=== PATIENT | male | born 1975 | race Caucasian/White ===

== ENCOUNTER 2017-04-27 11:41 | Emergency (ER) | payer BC ==
[2017-04-27 12:05] VITALS: BP 156/81
[2017-04-27] MEDS: Tetan/Diph/Pertus SYR(Tdap)* 0.5 ML SYR(BOOSTRIX) use SYR IM ONE (13:05)
--- NOTE | 2017-04-27 13:19 | UC ---
Skin Complaint HPI - HPI Summary HPI Summary: Patient presents to the with CC of cat bite to the left MCP joint on the dorsum of the hand last evening. He arrives today with worsening erythema over the joint, slight swelling and warm to the touch. Denies previous history of infected cat bites or MRSA. He has full ROM of the joint. Denies numbness, tingling. He is otherwise healthy. Has not taken any medication for relief. The cat it his own, UTD with immunizations. He is currently NOT UTD with tetanus. - History of Current Complaint Chief Complaint: UCUpperExtremity Time Seen by Provider: 04/27/17 12:42 Stated Complaint: CAT BITE Hx Obtained From: Patient Onset/Duration: Sudden Onset Skin Exposure Onset/Duration: Hours Ago Timing: Constant Onset Severity: Mild Current Severity: Moderate Pain Intensity: 4 Pain Scale Used: 0-10 Numeric Location: Hand (Left) Character: Swelling, Pain, Redness Aggravating Factor(s): Touch Alleviating Factor(s): Nothing Associated Signs & Symptoms: Positive: Joint Swelling Related History: Trauma - Allergy/Home Medications Allergies/Adverse Reactions: Allergies Allergy/AdvReac Type Severity Reaction Status Date / Time Shellfish Allergy Allergy Nausea And Verified 09/02/15 14:18 Vomiting Review of Systems Constitutional: Negative Skin: Other - erythema to the left MCP joint on the dorsum of the left hand Respiratory: Negative Cardiovascular: Negative Gastrointestinal: Negative Motor: Negative Neurovascular: Negative Musculoskeletal: Arthralgia - left middle MCP joint swelling Neurological: Negative Is Patient Immunocompromised?: No All Other Systems Reviewed And Are Negative: Yes PMH/Surg Hx/FS Hx/Imm Hx Previously Healthy: Yes - Surgical History Surgical History: Yes Surgery Procedure, Year, and Place: Inguinal hernia operation age 4 - Social History Occupation: Employed Full-time Lives: With Family Alcohol Use: Weekly Alcohol Amount: 3-4 drinks twice weekly Substance Use Type: None Smoking Status (MU): Never Smoked Tobacco Have You Smoked in the Last Year: No When Did the Patient Quit Smoking/Using Tobacco: 20 years ago - Immunization History Most Recent Influenza Vaccination: 2013 Most Recent Tetanus Shot: unsure if he is up to date Physical Exam Triage Information Reviewed: Yes Appearance: Well-Appearing, Well-Nourished Vital Signs: Initial Vital Signs Temp 97.5 F 04/27/17 12:01 Pulse 72 04/27/17 12:01 Resp 16 04/27/17 12:01 BP 156/81 04/27/17 12:01 Pulse Ox 100 04/27/17 12:01 Vital Signs Reviewed: Yes Eye Exam: Normal Eyes: Positive: Conjunctiva Clear Dental Exam: Normal Neck exam: Normal Neck: Positive: Supple, Nontender, No Lymphadenopathy Respiratory Exam: Normal Respiratory: Positive: Chest non-tender Cardiovascular Exam: Normal Musculoskeletal: Positive: Strength Intact, ROM Intact Neurological Exam: Normal Neurological: Positive: Alert Psychological Exam: Normal Psychological: Positive: Normal Response To Family Skin: Positive: Other - erythema, slight swelling over the dorsum of the 3rd MCP joint - left hand Course/Dx - Course Course Of Treatment: Patient presents to the with evaluation of cat bite to the left MCP joint. There are small puncture wounds noted to the MCP joint without depth. ROM OK. Denies numbness, tingling. Erythema and warmth to the joint. He is given Augmentin 875mg BID x 7 days and is encouraged to go to the ED if he notices any worsening spreading, pain or decreased ROM of the hand. He agrees with plan. - Diagnoses Provider Diagnoses: Cat bite Discharge - Discharge Plan Condition: Stable Disposition: HOME Prescriptions: Amoxicillin/Clavulanate TAB* [Augmentin TAB 875*] 875 mg PO BID #14 tab Patient Education Materials: Animal Bite (ED) Referrals: No Primary Care Phys,NOPCP [Primary Care Provider] - Additional Instructions: Ibuprofen 600mg three times daily Tetanus booster was given Augmentin twice daily x 7 days - first dose this afternoon after pickup - second dose this evening If symptoms become worse - go to the ED - worsening redness, streaking up the hand or arm, decreased range of motion or abnormal drainage.
== END 2017-04-27 13:08 | disposition home or self-care (01) ==
LOC: UCEAST 11:41
DX: S61.452A Open bite of left hand, initial encounter (principal); W55.01XA Bitten by cat, initial encounter; Z91.013 Allergy to seafood; Z23 Encounter for immunization
CPT/HCPCS: 90471; 90715; 99212; G0463

== ENCOUNTER → 2017-04-27 16:04 | Emergency (ER) | payer BC ==
[~2017-04-27 16:04] MED LIST: Lidocaine 1% INJ* 10 MG/ML 30 ML SDV INJ ONE; Lidocaine 1% INJ* 10 MG/ML 30 ML SDV ONE
[2017-04-27 17:27] LABS: Hematocrit 43 % (42-52); Hemoglobin 14.9 g/dl (14.0-18.0); Mean Corpuscular HGB Conc 35 g/dl (31-36); Mean Corpuscular Hemoglobin 29 pg (27-31); Mean Corpuscular Volume 84 fL (80-94); Mean Platelet Volume 8 um3 (7.4-10.4); Red Blood Count 5.08 10^6/ul (4.0-5.4); Red Cell Distribution Width 14 % (10.5-15); White Blood Count 8.3 10^3/ul (3.5-10.8)
[2017-04-27 17:42] LABS: Albumin 4.4 g/dL (3.2-5.2); BUN/Creatinine Ratio 12.4 (8-20); C Reactive Protein 2.57 mg/L (< 5.00); Calcium 9.5 mg/dL (8.6-10.3); EGFR African American 100.6 (>60); EGFR Non-African American 78.2 (>60); Globulin 2.5 g/dL (2-4); Potassium 3.9 mmol/L (3.5-5.0); Total Bilirubin 0.6 mg/dL (0.2-1.0); Total Protein 6.9 g/dL (6.4-8.9)
[2017-04-27 19:55] VITALS: BP 151/95
--- NOTE | 2017-04-27 21:41 | ED ---
Yaniv Velasco Nilda, scribed for Antonio Chiu MD on 04/27/17 at 1708 . Upper Extremity Pain - HPI Summary HPI Summary: This patient is a 42 year old M presenting from [facility] to [facility] with a chief complaint of constant moderate left hand pain s/p cat bite at 2030 last night. The patient rates the pain 5/10 in severity. Symptoms aggravated by movement and alleviated by rest. Patient reports swelling and erythema in the affected area. At 1315 today, patient received a dose of Augmentin at [facility]. He was told to visit the ED if swelling and pain worsened. - History of Current Complaint Chief Complaint: EDExtremityUpper Stated Complaint: CAT BITE, Time Seen by Provider: 04/27/17 16:59 Hx Obtained From: Patient Mechanism Of Injury: Other - cat bite Onset/Duration: Started Hours Ago, Still Present Timing: Constant Severity Currently: Moderate - 5/10 pain severity Pain Location: Hand - left Aggravating Factor(s): Movement Alleviating Factor(s): Rest Associated Signs & Symptoms: Positive: Swelling, Redness - Allergies/Home Medications Allergies/Adverse Reactions: Allergies Allergy/AdvReac Type Severity Reaction Status Date / Time Shellfish Allergy Allergy Nausea And Verified 09/02/15 14:18 Vomiting PMH/Surg Hx/FS Hx/Imm Hx Respiratory History: Reports: Hx Asthma - activity induced Asthma Sensory History: Denies: Hx Legally Blind EENT History: Denies: Hx Deafness - Surgical History Surgery Procedure, Year, and Place: Inguinal hernia operation age 4 Infectious Disease History: No Infectious Disease History: Denies: History Other Infectious Disease, Traveled Outside the [place] in Last 30 Days - Family History Known Family History: Negative: Hypertension, Diabetes - Social History Alcohol Use: Weekly Alcohol Amount: 3-4 drinks twice weekly Substance Use Type: Reports: None Smoking Status (MU): Never Smoked Tobacco Have You Smoked in the Last Year: No Review of Systems Negative: Shortness Of Breath Positive: Other - left hand pain Positive: Other - erythema and swelling on left hand All Other Systems Reviewed And Are Negative: Yes Physical Exam Triage Information Reviewed: Yes Vital Signs On Initial Exam: Initial Vitals Temp Pulse Resp BP Pulse Ox 97.9 F 96 20 152/100 100 04/27/17 16:10 04/27/17 16:10 04/27/17 16:10 04/27/17 16:10 04/27/17 16:10 Vital Signs Reviewed: Yes Appearance: Positive: Well-Appearing, No Pain Distress Skin: Positive: Warm, Skin Color Reflects Adequate Perfusion, Dry Head/Face: Positive: Normal Head/Face Inspection Eyes: Positive: Normal ENT: Positive: Normal ENT inspection Neck: Positive: Supple, Nontender Respiratory/Lung Sounds: Positive: Clear to Auscultation, Breath Sounds Present Cardiovascular: Positive: RRR Abdomen Description: Positive: Nontender, Soft Bowel Sounds: Positive: Present Musculoskeletal: Positive: Other - Puncture wounds on left 3rd MPJ with surrounding erythema, tender to passive motion of MPJ but not distally. Neurological: Positive: Normal Psychiatric: Positive: Normal, Affect/Mood Appropriate Procedures - Procedure Summary Procedure Summary: Each of 4 puncture wounds (2 medially and 2 laterally) were entered with an 11 blade and extended proximally for 1/2 cm after prepping and draping and anesthetizing with 1% lido. The most proximal medial one bled quite a bit and must have had a small vein under it. The bleeding was controlled and the wounds were dressed. - Incision and Drainage Anesthesia: Lidocaine - 1% Instrument(s): Scalpel Diagnostics - Vital Signs Vital Signs Temp Pulse Resp BP Pulse Ox 04/27/17 16:10 97.9 F 96 20 152/100 100 - Laboratory Lab Results: Lab Results 04/27/17 04/27/17 Range/Units 17:19 17:19 WBC 8.3 (3.5-10.8) 10^3/ul RBC 5.08 (4.0-5.4) 10^6/ul Hgb 14.9 (14.0-18.0) g/dl Hct 43 (42-52) % MCV 84 (80-94) fL MCH 29 (27-31) pg MCHC 35 (31-36) g/dl RDW 14 (10.5-15) % Plt Count 224 (150-450) 10^3/ul MPV 8 (7.4-10.4) um3 Neut % (Auto) 76.2 (38-83) % Lymph % (Auto) 13.6 L (25-47) % Avery % (Auto) 8.5 (1-9) % Eos % (Auto) 1.3 (0-6) % Baso % (Auto) 0.4 (0-2) % Absolute Neuts (auto) 6.3 (1.5-7.7) 10^3/ul Absolute Lymphs (auto) 1.1 (1.0-4.8) 10^3/ul Absolute Monos (auto) 0.7 (0-0.8) 10^3/ul Absolute Eos (auto) 0.1 (0-0.6) 10^3/ul Absolute Basos (auto) 0 (0-0.2) 10^3/ul Absolute Nucleated RBC 0 10^3/ul Nucleated RBC % 0 Sodium 137 (133-145) mmol/L Potassium 3.9 (3.5-5.0) mmol/L Chloride 104 (101-111) mmol/L Carbon Dioxide 27 (22-32) mmol/L Anion Gap 6 (2-11) mmol/L BUN 13 (6-24) mg/dL Creatinine 1.05 (0.67-1.17) mg/dL Est GFR ( Amer) 100.6 (>60) Est GFR (Non-Af Amer) 78.2 (>60) BUN/Creatinine Ratio 12.4 (8-20) Glucose 85 (70-100) mg/dL Calcium 9.5 (8.6-10.3) mg/dL Total Bilirubin 0.60 (0.2-1.0) mg/dL AST 12 L (13-39) U/L ALT 10 (7-52) U/L Alkaline Phosphatase 50 (34-104) U/L C-Reactive Protein 2.57 (< 5.00) mg/L Total Protein 6.9 (6.4-8.9) g/dL Albumin 4.4 (3.2-5.2) g/dL Globulin 2.5 (2-4) g/dL Albumin/Globulin Ratio 1.8 (1-3) Result Diagrams: 04/27/17 17:19 04/27/17 17:19 Lab Statement: Any lab studies that have been ordered have been reviewed, and results considered in the medical decision making process. Course/Dx - Course Course Of Treatment: Mr. Hills has an infection from a cat bite. This does not clinically seem to represent a tenosynvitis or a joint infection. He has been opened up a bit for drainage and was given IV antibiotis here. He will go home on augmentin and F/U tomorrow with Dr. Hernandez for a recheck. - Diagnoses Provider Diagnoses: Cat bite of hand - Physician Notifications Discussed Care of Patient With: Jeanmarie Hernandez - Ortho Time Discussed With Above Provider: 18:50 Instructed by Provider To: Other - discussed patient. Agrees to see patient tomorrow. Discharge - Discharge Plan Condition: Stable Disposition: HOME Patient Education Materials: Animal Bite (ED), Acute Wound Care (ED) Referrals: Jeanmarie Hernandez MD [Medical Doctor] - 1 Day Additional Instructions: Follow up with Dr. Hernandez tomorrow. Call him in the morning. RETURN TO THE EMERGENCY DEPARTMENT FOR CHANGING OR WORSENING SYMPTOMS. The documentation as recorded by the Yaniv patten Nilda accurately reflects the service I personally performed and the decisions made by me, Antonio Chiu MD.
== END | disposition home or self-care (01) ==
LOC: ED 16:04
DX: S61.452A Open bite of left hand, initial encounter (principal); W55.01XA Bitten by cat, initial encounter; Y93.9 Activity, unspecified; Y92.9 Unspecified place or not applicable
CPT/HCPCS: 36415; 80053; 85025; 86140; 96374; 99283; J2001; J2543

== ENCOUNTER 2017-04-28 10:56 | Emergency (ER) | payer BC ==
[2017-04-28] MEDS ORDERED: cefTRIAXone(*) 1 GM in NS 0.9% 50 ML* 50 ML IVPB ONE (11:38)
[2017-04-28 12:27] VITALS: BP 142/80
--- NOTE | 2017-04-28 17:59 | ED ---
Anshul Velasco Angela, scribed for Javier Ray MD on 04/28/17 at 1120 . Bite Injury/Animal - HPI Summary HPI Summary: This pt is a 42 y/o male presenting to [facility] c/o increased pain and swelling on the left third finger since yesterday s/p cat bite last night at 2030. Pt reports he was seen in the ED yesterday, where he received IV zosyn and has taken 3 doses of augmentin. Pt states that he was supposed to follow up with Dr. Hernandez today. Pt called his office today at 0915 but was unable to schedule an appointment for today. An hour after he made the call, the pt states he became inpatient and cut the gauze. He states he is unable to bend his finger secondary to pain. - History of Current Complaint Chief Complaint: EDAnimalBite Stated Complaint: CAT BITE Time Seen by Provider: 04/28/17 11:14 Hx Obtained From: Patient Onset of Injury: Happened hours ago, Still Present Type of Bite: Pet - cat Pain Intensity: 0 Character: Puncture Aggravating Factor(s): Other - bending finger Alleviating Factor(s): Nothing Associated Signs And Symptoms: Positive: Erythema, Swelling, Limited ROM - Allergies/Home Medications Allergies/Adverse Reactions: Allergies Allergy/AdvReac Type Severity Reaction Status Date / Time Shellfish Allergy Allergy Nausea And Verified 09/02/15 14:18 Vomiting PMH/Surg Hx/FS Hx/Imm Hx Endocrine/Hematology History: Denies: Hx Diabetes Cardiovascular History: Denies: Hx Hypertension Respiratory History: Reports: Hx Asthma - activity induced Asthma Sensory History: Denies: Hx Legally Blind, Hx Deafness Opthamlomology History: Denies: Hx Legally Blind - Surgical History Surgery Procedure, Year, and Place: Inguinal hernia operation age 4 Infectious Disease History: No Infectious Disease History: Denies: History Other Infectious Disease, Traveled Outside the [place] in Last 30 Days - Family History Known Family History: Negative: Hypertension, Diabetes - Social History Alcohol Use: Weekly Alcohol Amount: 3-4 drinks twice weekly Substance Use Type: Reports: None Smoking Status (MU): Never Smoked Tobacco Have You Smoked in the Last Year: No Review of Systems Negative: Fever, Chills Eyes: Negative ENT: Negative Cardiovascular: Negative Respiratory: Negative Gastrointestinal: Negative Positive: Decreased ROM - flexion on left third finger, Other - left third digit pain Positive: Other - swelling of the left third finger. All Other Systems Reviewed And Are Negative: Yes Physical Exam - Summary Physical Exam Summary: VITAL SIGNS: Reviewed. GENERAL: Patient is a well-developed and nourished male who is lying comfortable in the stretcher. Patient is not in any acute respiratory distress. HEAD AND FACE: No signs of trauma. No ecchymosis, hematomas or skull depressions. No sinus tenderness. EYES: PERRLA, EOMI x 2, No injected conjunctiva, no nystagmus. EARS: Hearing grossly intact. Ear canals and tympanic membranes are within normal limits. MOUTH: Oropharynx within normal limits. NECK: Supple, trachea is midline, no adenopathy, no JVD, no carotid bruit, no c- spine tenderness, neck with full ROM. CHEST: Symmetric, no tenderness at palpation LUNGS: Clear to auscultation bilaterally. No wheezing or crackles. CVS: Regular rate and rhythm, S1 and S2 present, no murmurs or gallops appreciated. ABDOMEN: Soft, non-tender. No signs of distention. No rebound no guarding, and no masses palpated. Bowel sounds are normal. EXTREMITIES: LUE: redness and swelling of left middle finger. Three puncture wounds on both sides of the left third digit. There is good ROM but pain with flexion. There is good capillary refill. NEURO: Alert and oriented x 3. No acute neurological deficits. Speech is normal and follows commands. SKIN: Dry and warm Triage Information Reviewed: Yes Vital Signs On Initial Exam: Initial Vitals Temp Pulse Resp BP Pulse Ox 98 F 86 17 140/91 99 04/28/17 11:05 04/28/17 11:05 04/28/17 11:05 04/28/17 11:05 04/28/17 11:05 Vital Signs Reviewed: Yes Diagnostics - Vital Signs Vital Signs Temp Pulse Resp BP Pulse Ox 04/28/17 11:05 98 F 86 17 140/91 99 - Laboratory Lab Statement: Any lab studies that have been ordered have been reviewed, and results considered in the medical decision making process. Bite Injury Course/Dx - Course Assessment/Plan: This pt is a 42 y/o male presenting to [facility] c/o increased pain and swelling on the left third finger since yesterday s/p cat bite last night at 2030. Pt reports he was seen in the ED yesterday, where he received IV zosyn and has taken 3 doses of augmentin. Pt states that he was supposed to follow up with Dr. Hernandez today. Pt called his office today at 0915 but was unable to schedule an appointment for today. An hour after he made the call, the pt states he became inpatient and cut the gauze. He states he is unable to bend his finger secondary to pain. I examined the pt and has swelling and redness in left middle finger with decreased ROM secondary to pain. I discussed the case with Dr. Hernandez and recommends I give the pt 1g of Rocephin and discharge him to his office. Pt is hemodynamically stable, alert and oriented x3. - Diagnoses Differential Diagnosis/HQI/PQRI: Positive: Cellulitis, Joint Space Infection, Tenosynovitis Provider Diagnosis: Finger infection - Provider Notifications Discussed Care Of Patient With: Jeanamrie Hernandez Time Discussed With Above Provider: 11:34 Instructed by Provider To: Other - I discussed pt care with Dr. Hernandez, who recommends I give the pt 1 gram of Rocephin. Discharge - Discharge Plan Condition: Stable Disposition: HOME Patient Education Materials: Animal Bite (ED), Wound Infection (ED) Referrals: [facility] [Outside] Additional Instructions: Please follow up with your primary care provider. The documentation as recorded by the Anshul patten Angela accurately reflects the service I personally performed and the decisions made by me, Javier Ray MD.
== END 2017-04-28 12:26 | disposition home or self-care (01) ==
LOC: ED 10:56
DX: L08.9 Local infection of the skin and subcutaneous tissue, unspecified (principal)
CPT/HCPCS: 99282; J0696

== ENCOUNTER 2017-06-28 17:32 | Emergency (ER) | payer BC ==
--- NOTE | 2017-06-28 19:23 | UC ---
Respiratory Complaint HPI - HPI Summary HPI Summary: Pt presents with cough and chest congestion for one month. 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 He wasn't sure if his cough and wheezing were caused by that; however the construction finished 5 days ago and his symptoms are persisting. He has not taken anything OTC. Denies fever, chills, ST, SOB, chest pain, abdominal pain, N/V/d/C - History of Current Complaint Hx Obtained From: Patient Onset/Duration: Gradual Onset Timing: Constant Severity Initially: Mild Severity Currently: Moderate Character: Cough: Nonproductive Associated Signs And Symptoms: Positive: Wheezing <Harris Harden - Last Filed: 06/28/17 20:13> <Danitza Lara - Last Filed: 06/28/17 20:55> - History of Current Complaint Chief Complaint: UCGeneralIllness Stated Complaint: URI Time Seen by Provider: 06/28/17 19:22 - Allergies/Home Medications Allergies/Adverse Reactions: Allergies Allergy/AdvReac Type Severity Reaction Status Date / Time Shellfish Allergy Allergy Nausea And Verified 06/28/17 18:16 Vomiting PMH/Surg Hx/FS Hx/Imm Hx Previously Healthy: Yes - Surgical History Surgical History: Yes Surgery Procedure, Year, and Place: Inguinal hernia operation age 4 - Family History Known Family History: Negative: Hypertension, Diabetes - Social History Occupation: Employed Full-time Lives: With Family Alcohol Use: Weekly Alcohol Amount: 3-4 drinks twice weekly Substance Use Type: None Smoking Status (MU): Never Smoked Tobacco Have You Smoked in the Last Year: No When Did the Patient Quit Smoking/Using Tobacco: 20 years ago - Immunization History Most Recent Influenza Vaccination: 2013 Most Recent Tetanus Shot: unsure if he is up to date <Harris Harden - Last Filed: 06/28/17 20:13> Review of Systems Constitutional: Negative Skin: Negative Eyes: Negative ENT: Negative Respiratory: Cough, Other - Wheezing Cardiovascular: Negative Gastrointestinal: Negative Neurological: Negative Psychological: Negative All Other Systems Reviewed And Are Negative: Yes <Harris Harden - Last Filed: 06/28/17 20:13> Physical Exam Triage Information Reviewed: Yes Appearance: Well-Appearing, Well-Nourished Vital Signs: Initial Vital Signs Temp 97.4 F 06/28/17 18:13 Pulse 81 06/28/17 18:13 Resp 18 06/28/17 18:13 BP 154/77 06/28/17 18:13 Pulse Ox 100 06/28/17 18:13 Vital Signs Reviewed: Yes Eyes: Positive: Conjunctiva Clear. Negative: Conjunctiva Inflamed, Discharge ENT: Positive: Hearing grossly normal, Pharynx normal, TMs normal, Uvula midline. Negative: Pharyngeal erythema, Nasal congestion, Nasal drainage, TM bulging, TM dull, TM red, Tonsillar swelling, Tonsillar exudate, Muffled voice, Hoarse voice, Sinus tenderness Neck: Positive: Supple, Nontender, No Lymphadenopathy Respiratory: Positive: Chest non-tender, Lungs clear, No respiratory distress, No accessory muscle use, Wheezing - Moderate throughout. Negative: Crackles Cardiovascular: Positive: RRR, No Murmur, Pulses Normal Neurological: Positive: Alert Psychological: Positive: Age Appropriate Behavior Skin: Negative: rashes <Harris Harden - Last Filed: 06/28/17 20:13> Vital Signs: Initial Vital Signs Temp 97.4 F 06/28/17 18:13 Pulse 81 06/28/17 18:13 Resp 18 06/28/17 18:13 BP 154/77 06/28/17 18:13 Pulse Ox 100 06/28/17 18:13 <Danitza Lara - Last Filed: 06/28/17 20:55> Diagnostic Evaluation - Laboratory O2 Sat by Pulse Oximetry: 100 <Harris Harden - Last Filed: 06/28/17 20:13> Re-Evaluation - Re-Evaluation First Eval Re-Evaluation Time: 20:00 Change: Improved Comment: S/p Duoneb. Lung sounds significantly improved. Mild wheezing LLL. Pt subjectively voices great improvement in breathing symptoms. <Harris Harden - Last Filed: 06/28/17 20:13> Respiratory Course/Dx - Course Course Of Treatment: A Duoneb treatment was administered with significant improvement of his lung sounds - mild LLL wheezing remains. He reports feeling greatly improved and is able to "get a deep breath finally". Will rx for albuterol inhaler and tessalon. - Differential Dx/Diagnosis Differential Diagnosis/HQI/PQRI: Airway Obstruction, Foreign Body, Aspiration, Bronchitis, Lower Resp Infection Provider Diagnoses: Bronchitis <Harris Harden - Last Filed: 06/28/17 20:13> Discharge <Harris Harden - Last Filed: 06/28/17 20:13> <Danitza Lara - Last Filed: 06/28/17 20:55> - Discharge Plan Condition: Stable Disposition: HOME Prescriptions: Albuterol HFA INHALER* [Ventolin HFA Inhaler*] 2 puff INH Q6H PRN #1 mdi PRN Reason: Wheezing Benzonatate CAP* [Tessalon 100 MG CAP*] 100 mg PO TID #30 cap Patient Education Materials: Acute Bronchitis (ED) Referrals: No Primary Care Phys,NOPCP [Primary Care Provider] - Additional Instructions: If you develop a fever, SOB, chest pain, new or worsening symptoms - please call your PCP or go to the ED. Your blood pressure was mildly elevated at todays visit. Please see your primary provider within 4 weeks for recheck and re-evaluation. Attestation Statement User Type: Provider - I was available for consult. This patient was seen by the JEANNETTE. The patient was not presented to, seen by, or examined by me. -Nigel <Danitza Lara - Last Filed: 06/28/17 20:55>
[2017-06-28] MEDS ORDERED: Albuterol/Ipratropium NEB.SOL* Albuterol 2.5 MG/Ipratropium 0.5 MG 3 ML INH ONE (19:26)
[2017-06-28 19:47] VITALS: BP 132/78
== END 2017-06-28 20:12 | disposition home or self-care (01) ==
LOC: UCEAST 17:32
DX: J40 Bronchitis, not specified as acute or chronic (principal); Z72.89 Other problems related to lifestyle
CPT/HCPCS: 99212; A9270-GY; G0463

== ENCOUNTER 2017-12-15 13:49 | Emergency (ER) | payer BC ==
[2017-12-15 14:17] VITALS: BP 148/90
--- NOTE | 2017-12-15 14:37 | UC ---
Yessenia Velasco Tenzin, scribed for Ben Conde MD on 12/15/17 at 1433 . Abdominal Pain Male HPI - HPI Summary HPI Summary: Pt is a 42 years old male presenting to the complaining of pain and discomfort in the epigastric area that started shortly after his lunch break today. He describes the pain as an intense discomfort that is waxing and waning. The pain doesn't radiate elsewhere but feels like "waves" traveling between epigastric and umbilical area. Pt rates the pain 4/10 in severity. He believes the symptoms are very similar to when he eats shell fish as he is allergic to it. He denies nausea and chest pain. His usual symptoms associated with shellfish reaction involves intense discomfort in umbilical area, vomiting and SOB. He would usually takes Benadryl and that helps to alleviate his abdominal pain. - History of Current Complaint Chief Complaint: UCChestPain Stated Complaint: FOOD ALLERGRY Time Seen by Provider: 12/15/17 14:10 Hx Obtained From: Patient Severity Initially: Mild Severity Currently: Mild Pain Intensity: 4 Pain Scale Used: 0-10 Numeric Location: Epigastric Radiates: No Aggravating Factor(s): Nothing Alleviating Factor(s): Nothing Associated Signs And Symptoms: Negative: Chest Pain, Nausea - Allergies/Home Medications Allergies/Adverse Reactions: Allergies Allergy/AdvReac Type Severity Reaction Status Date / Time Penicillins Allergy Rash Verified 12/15/17 14:08 shellfish derived Allergy Difficulty Verified 12/15/17 14:08 Breathing PMH/Surg Hx/FS Hx/Imm Hx - Additional Past Medical History Additional PMH: Postive: HTN, Activity induced asthma. - Surgical History Surgical History: Yes Surgery Procedure, Year, and Place: Inguinal hernia age 4 - Family History Known Family History: Positive: Cardiac Disease Negative: Hypertension, Diabetes - Social History Alcohol Use: Weekly Alcohol Amount: 3-4 drinks twice weekly Substance Use Type: None Smoking Status (MU): Never Smoked Tobacco Have You Smoked in the Last Year: No When Did the Patient Quit Smoking/Using Tobacco: 20 years ago - Immunization History Most Recent Influenza Vaccination: 2013 Most Recent Tetanus Shot: unsure if he is up to date Review of Systems Constitutional: Negative Skin: Negative Eyes: Negative ENT: Negative Respiratory: Negative Cardiovascular: Negative Gastrointestinal: Abdominal Pain - epigastric and umbilical area. Genitourinary: Negative Motor: Negative Neurovascular: Negative Musculoskeletal: Negative Neurological: Negative Psychological: Negative All Other Systems Reviewed And Are Negative: Yes Physical Exam - Summary Physical Exam Summary: General: well-appearing, no pain distress Skin: warm, color reflects adequate perfusion, dry Head: normal Eyes: EOMI, MECHELLE ENT: normal Neck: supple, nontender Respiratory: CTA, breath sounds present Cardiovascular: RRR Abdomen: soft, nontender Bowel: present Musculoskeletal: normal, strength/ROM intact Neurological: sensory/motor intact, A&O x3 Psychological: affect/mood appropriate Triage Information Reviewed: Yes Vital Signs: Initial Vital Signs Temp 98.6 F 12/15/17 14:09 Pulse 85 12/15/17 14:09 Resp 16 12/15/17 14:09 BP 148/90 12/15/17 14:09 Pulse Ox 97 12/15/17 14:09 Vital Signs Reviewed: Yes Diagnostics - EKG Cardiac Rate: NL - at 74 BPM, EKG done at 14:01. Ectopy: None ST Segment: Normal - and Early repolarization. Abd Pain Male Course/Dx - Course Course Of Treatment: DISCUSSED SX WITH PATIENT AND FURTHER EVALUATION TO INCLUDE CARDIAC EVALUATION. PATIENT DECLINED AMBULANCE TRANSFER TO THE EMERGENCY DEPARTMENT, HE WILL DRIVE HIMSELF. - Differential Dx/Clinical Impression Provider Diagnoses: EPIGASTRIC PAIN Discharge - Sign-Out/Discharge Documenting (check all that apply): Discharge/Admit/Transfer - Discharge Plan Condition: Stable Disposition: HOME Patient Education Materials: Epigastric Pain (ED) Referrals: [facility] [Outside] Additional Instructions: GO DIRECTLY TO THE EMERGENCY DEPARTMENT FOR FURTHER EVALUATION AND CARE OF YOUR EPIGASTRIC PAIN. - Billing Disposition and Condition Condition: STABLE Disposition: Home The documentation as recorded by the Yessenia patten Tenzin accurately reflects the service I personally performed and the decisions made by me, Ben Conde MD.
== END 2017-12-15 14:29 | disposition home or self-care (01) ==
LOC: UCEAST 13:49
DX: R10.13 Epigastric pain (principal); R10.33 Periumbilical pain; R07.89 Other chest pain; R11.0 Nausea; I10 Essential (primary) hypertension; J45.990 Exercise induced bronchospasm; Z88.0 Allergy status to penicillin; Z91.013 Allergy to seafood; Z82.49 Family history of ischemic heart disease and other diseases of the circulatory system
CPT/HCPCS: 93005; 99212; G0463

== ENCOUNTER 2017-12-15 14:49 | Emergency (ER) | payer BC ==
[2017-12-15] MEDS ORDERED: Al Hydrox/Mg Hydrox/Simet LIQ* 30 ML UDC PO ONE (15:19)
[2017-12-15 15:42] LABS: ABS Basophils 0 10^3/ul (0-0.2); ABS Eosinophils 0.1 10^3/ul (0-0.6); ABS Lymphocytes 1.1 10^3/ul (1.0-4.8); ABS Monocytes 0.5 10^3/ul (0-0.8); ABS Neutrophils 5.2 10^3/ul (1.5-7.7); ABS Nucleated RBC 0 10^3/ul; Eosinophil % 1.5 % (0-6); Hematocrit 43 % (42-52); Hemoglobin 14.4 g/dl (14.0-18.0); Lymphocyte % 16.5 % (25-47); Mean Corpuscular HGB Conc 34 g/dl (31-36); Mean Corpuscular Hemoglobin 29 pg (27-31); Mean Corpuscular Volume 84 fL (80-94); Mean Platelet Volume 7.8 um3 (7.4-10.4); Nucleated Red Blood Cells % 0; Platelet Count 231 10^3/ul (150-450); Red Blood Count 5.04 10^6/ul (4.0-5.4); Red Cell Distribution Width 14 % (10.5-15); White Blood Count 6.9 10^3/ul (3.5-10.8)
--- NOTE | 2017-12-15 15:43 | RAD ---
Indication: Upper abdominal pain began at 1300 hours today. Previous inguinal hernia repair 2 years ago. Comparison: No relevant prior exams available on the [facility] [place]. Technique: Supine view of the abdomen. Report: Normal bowel gas pattern. Moderate stool in the RIGHT colon. Negative for rectal distention with stool. No suspicious calcifications or mass effect. Unremarkable soft tissue contours. IMPRESSION: No abdominal pelvic pathologic process evident within limits of a supine radiograph.
[2017-12-15 15:59] VITALS: BP 134/88
[2017-12-15 16:06] LABS: EGFR Non-African American 71.9 (>60)
--- NOTE | 2017-12-15 18:51 | ED ---
Umair Velasco Stephanie, scribed for Jossue Pérez MD on 12/15/17 at 1525 . Abdominal Pain/Male - HPI Summary HPI Summary: The pt is a 42 y/o M presenting to the ED with c/o abd discomfort that began at 13:00 today. He denies sore throat, nausea and vomiting. The pt states he usually experiences this type of discomfort following exposure to shellfish however, he denies recent exposure to shellfish. The pt states the last thing he consumed was a bottle of Soylent which is a plant-based meal replacement shake which should not contain shellfish. He reports this typical chest discomfort is accompanied by nausea and vomiting however, he denies nausea and vomiting at this time. The pt states he currently feels better than at onset. - History of Current Complaint Chief Complaint: EDAbdPain Stated Complaint: ABD PAIN Time Seen by Provider: 12/15/17 15:11 Hx Obtained From: Patient Onset/Duration: Sudden Onset, Lasting Hours - 2, Resolved Timing: Constant Severity Currently: Mild Pain Intensity: 4 Pain Scale Used: 0-10 Numeric Location: Epigastric Radiates: No Character: Other: - discomfort Aggravating Factor(s): Nothing Alleviating Factor(s): Nothing Associated Signs And Symptoms: Negative: Nausea, Vomiting - Allergies/Home Medications Allergies/Adverse Reactions: Allergies Allergy/AdvReac Type Severity Reaction Status Date / Time Penicillins Allergy Rash Verified 12/15/17 15:05 shellfish derived Allergy Difficulty Verified 12/15/17 15:05 Breathing PMH/Surg Hx/FS Hx/Imm Hx Endocrine/Hematology History: Denies: Hx Diabetes, Hx Thyroid Disease Cardiovascular History: Denies: Hx Hypertension Respiratory History: Reports: Hx Asthma - activity induced Asthma Denies: Hx Chronic Obstructive Pulmonary Disease (COPD) GI History: Denies: Hx Ulcer Sensory History: Denies: Hx Legally Blind, Hx Deafness Opthamlomology History: Denies: Hx Legally Blind - Surgical History Surgery Procedure, Year, and Place: Inguinal hernia age 4 Infectious Disease History: No Infectious Disease History: Denies: Hx Clostridium Difficile, Hx Hepatitis, Hx Human Immunodeficiency Virus (HIV), Hx of Known/Suspected MRSA, Hx Shingles, Hx Tuberculosis, Hx Known/ Suspected VRE, Hx Known/Suspected VRSA, History Other Infectious Disease, Traveled Outside the [place] in Last 30 Days - Family History Known Family History: Positive: Cardiac Disease Negative: Hypertension, Diabetes - Social History Occupation: Employed Part-time Lives: Alone Alcohol Use: Weekly Alcohol Amount: 3-4 drinks twice weekly Hx Substance Use: No Substance Use Type: Reports: None Hx Tobacco Use: No Smoking Status (MU): Never Smoked Tobacco Have You Smoked in the Last Year: No Review of Systems Negative: Fever Negative: Sore Throat Negative: Vomiting, Nausea Negative: Slurred Speech All Other Systems Reviewed And Are Negative: Yes Physical Exam - Summary Physical Exam Summary: Appearance: Well appearing, no pain distress Skin: warm, dry, reflects adequate perfusion Head/face: normal Eyes: EOMI, MECHELLE ENT: normal, mucous membranes moist, no swelling Neck: supple, non-tender Respiratory: CTA, breath sounds present Cardiovascular: RRR, pulses symmetrical Abdomen: non-tender, soft, no rebound guarding or tenderness Bowel Sounds: present Musculoskeletal: normal, strength/ROM intact Neuro: normal, sensory motor intact, A&Ox3 Triage Information Reviewed: Yes Vital Signs On Initial Exam: Initial Vitals Temp Pulse Resp BP Pulse Ox 98.1 F 74 18 144/101 100 12/15/17 14:58 12/15/17 14:58 12/15/17 14:58 12/15/17 14:58 12/15/17 14:58 Vital Signs Reviewed: Yes Diagnostics - Vital Signs Vital Signs Temp Pulse Resp BP Pulse Ox 12/15/17 15:11 78 10 159/98 99 12/15/17 14:58 98.1 F 74 18 144/101 100 - Laboratory Lab Results: Lab Results 12/15/17 12/15/17 12/15/17 Range/Units 15:36 15:36 15:36 WBC 6.9 (3.5-10.8) 10^3/ul RBC 5.04 (4.0-5.4) 10^6/ul Hgb 14.4 (14.0-18.0) g/dl Hct 43 (42-52) % MCV 84 (80-94) fL MCH 29 (27-31) pg MCHC 34 (31-36) g/dl RDW 14 (10.5-15) % Plt Count 231 (150-450) 10^3/ul MPV 7.8 (7.4-10.4) um3 Neut % (Auto) 74.7 (38-83) % Lymph % (Auto) 16.5 L (25-47) % [facility] % (Auto) 7.0 (0-7) % Eos % (Auto) 1.5 (0-6) % Baso % (Auto) 0.3 (0-2) % Absolute Neuts (auto) 5.2 (1.5-7.7) 10^3/ul Absolute Lymphs (auto) 1.1 (1.0-4.8) 10^3/ul Absolute Monos (auto) 0.5 (0-0.8) 10^3/ul Absolute Eos (auto) 0.1 (0-0.6) 10^3/ul Absolute Basos (auto) 0 (0-0.2) 10^3/ul Absolute Nucleated RBC 0 10^3/ul Nucleated RBC % 0 Sodium 140 (139-145) mmol/L Potassium 4.1 (3.5-5.0) mmol/L Chloride 105 (101-111) mmol/L Carbon Dioxide 27 (22-32) mmol/L Anion Gap 8 (2-11) mmol/L BUN 13 (6-24) mg/dL Creatinine 1.13 (0.67-1.17) mg/dL Est GFR ( Amer) 92.4 (>60) Est GFR (Non-Af Amer) 71.9 (>60) BUN/Creatinine Ratio 11.5 (8-20) Glucose 93 (70-100) mg/dL Lactic Acid 0.6 (0.5-2.0) mmol/L Calcium 9.2 (8.6-10.3) mg/dL Total Bilirubin 0.50 (0.2-1.0) mg/dL AST 13 (13-39) U/L ALT 9 (7-52) U/L Alkaline Phosphatase 47 (34-104) U/L Total Protein 7.0 (6.4-8.9) g/dL Albumin 4.6 (3.2-5.2) g/dL Globulin 2.4 (2-4) g/dL Albumin/Globulin Ratio 1.9 (1-3) Lipase 42 (11.0-82.0) U/L Result Diagrams: 12/15/17 15:36 12/15/17 15:36 Lab Statement: Any lab studies that have been ordered have been reviewed, and results considered in the medical decision making process. - Radiology Abdomen XRay Xray Interpretation: No Acute Changes Radiology Interpretation Completed By: Radiologist - No abdominal pelvic pathologic process evident within limits of a supine radiograph. ED physician has reviewed this report. Abdominal Pain Fem Course/Dx - Course Course Of Treatment: Patient with upper abdominal pain that has since improved. GI treatments here has resolved that. Laboratories are negative. KUB is normal. Discharged in good condition. - Diagnoses Differential Diagnosis/HQI/PQRI: Constipation, Gall Bladder Disease, Pancreatitis, Peptic Ulcer Disease Provider Diagnoses: Epigastric abdominal pain, Gastritis Discharge - Sign-Out/Discharge Documenting (check all that apply): Discharge/Admit/Transfer - Discharge - Discharge Plan Condition: Improved Disposition: HOME Prescriptions: Famotidine TAB* [Pepcid 20 MG TAB*] 20 mg PO BID #30 tab Sucralfate TAB* [Carafate*] 1 gm PO QID #40 tab Patient Education Materials: Gastritis (ED) Referrals: [facility] [Outside] [facility] [place]] Additional Instructions: Lingle diet, avoid spicy foods, alcohol or anti-inflammatory medications. Return with fever, increased pain, worse or other concerns. - Billing Disposition and Condition Condition: IMPROVED Disposition: Home The documentation as recorded by the Umair patten Stephanie accurately reflects the service I personally performed and the decisions made by , Jossue Pérez MD.
== END 2017-12-15 16:23 | disposition home or self-care (01) ==
LOC: ED 14:49
DX: R10.13 Epigastric pain (principal); K29.70 Gastritis, unspecified, without bleeding; Z88.0 Allergy status to penicillin
CPT/HCPCS: 36415; 74018; 80053; 83605; 83690; 85025; 99282; A9270-GY